=== PATIENT | female | born 1965 | race Caucasian/White ===

== ENCOUNTER → 2016-12-02 | Outpatient (CLI) | payer BC ==
[~2016-12-02] MED LIST: CYMBALTA60 MG PO; DESYREL100 MG PO; ERGOCALCIF50000 UNIT PO; FLEXERIL10 MG PO; LORTAB 10-3251 EACH PO; XANAX1 MG PO
== END | disposition home or self-care (01) ==
LOC: CDC 08:10
DX: Z01.810 Encounter for preprocedural cardiovascular examination (principal); M54.16 Radiculopathy, lumbar region; I10 Essential (primary) hypertension
CPT/HCPCS: 93000

== ENCOUNTER 2016-12-05 05:01 | Observation (INO) | payer BC ==
[~2016-12-05] VITALS: Ht 167.6 cm; Wt 67.9 kg
[2016-12-05 06:05] VITALS: BP 114/76
[2016-12-05 11:34] VITALS: BP 111/71
[2016-12-05 16:30] VITALS: BP 96/56
[2016-12-05 20:00] VITALS: BP 89/56
[2016-12-06] VITALS: BP 87/51
[2016-12-06 04:00] VITALS: BP 102/51
[2016-12-06 08:34] VITALS: BP 110/65
== END 2016-12-06 13:20 | disposition home or self-care (01) ==
LOC: 2SOUTH 05:01 → SDC 10:20 → EDSTATUS 10:20 → 2SOUTH 10:21 → 3EAST 11:24
PROC: 0SG10A0 Fusion of 2 or more Lumbar Vertebral Joints with Interbody Fusion Device, Anterior Approach, Anterior Column, Open Approach (ICD-10-PCS; principal; 2016-12-05)
DX: M51.17 Intervertebral disc disorders with radiculopathy, lumbosacral region (principal); I10 Essential (primary) hypertension; F41.9 Anxiety disorder, unspecified; Z86.14 Personal history of Methicillin resistant Staphylococcus aureus infection; Z84.1 Family history of disorders of kidney and ureter; Z83.3 Family history of diabetes mellitus; Z87.891 Personal history of nicotine dependence; Z88.5 Allergy status to narcotic agent
CPT/HCPCS: 72100; 76000; G0378; J0330; J0690; J1100; J1170; J1885; J2405; J2710; J3010; J3480